=== PATIENT | female | born 1995 | race Hispanic/Latino ===

== ENCOUNTER 2022-05-23 23:33 | Emergency (ER) | payer BC, OTHER ==
[~2022-05-23] VITALS: Ht 154.9 cm; Wt 54.0 kg
[2022-05-24 01:24] VITALS: BP 110/64
== END 2022-05-24 01:28 | disposition home or self-care (01) ==
LOC: EDH 23:33
DX: S61.213A Laceration without foreign body of left middle finger without damage to nail, initial encounter (principal); S61.215A Laceration without foreign body of left ring finger without damage to nail, initial encounter; X58.XXXA Exposure to other specified factors, initial encounter; Y93.89 Activity, other specified; Y92.89 Other specified places as the place of occurrence of the external cause; Y99.8 Other external cause status
CPT/HCPCS: 73130